=== PATIENT | male | born 1990 | race African-American/Black ===

== ENCOUNTER 2024-10-16 20:37 | Emergency (ER) | payer MEDICAID ==
[~2024-10-16] VITALS: Ht 193 cm; Wt 83.6 kg
[~2024-10-16 20:37] MED LIST: HYDR-4383 PO
[2024-10-16 20:48] VITALS: TEMP 98.2
[2024-10-16 21:16] LABS: BASOPHILS % (AUTO) 0.6 % (0-1); EOSINOPHILS # (AUTO) 0.3 X10'3 (0-0.9); EOSINOPHILS % (AUTO) 5.3 % (0-6); HEMATOCRIT 42.4 % (42.0-52.0); HEMOGLOBIN 13.6 g/dl (14.0-17.9); LYMPHOCYTES # (AUTO) 1.5 X10'3 (1.1-4.8); LYMPHOCYTES % (AUTO) 26.4 % (21-51); MEAN CORPUSCULAR HEMOGLOBIN 24.5 PG (27.0-31.0); MEAN CORPUSCULAR VOLUME 76.6 FL (78-98); MEAN PLATELET VOLUME 6.6 FL (7.4-10.4); MONOCYTES # (AUTO) 0.5 X10'3 (0-0.9); MONOCYTES % (AUTO) 7.8 % (2-12); NEUTROPHILS # (AUTO) 3.5 X10'3 (1.8-7.7); NEUTROPHILS % (AUTO) 59.9 % (42-75); PLATELET COUNT 329 X10'3 (140-440); RED BLOOD COUNT 5.54 X10'6 (4.70-6.10); RED CELL DISTRIBUTION WIDTH 16.5 % (11.5-14.5); WHITE BLOOD COUNT 5.8 X10'3 (4.5-11.0)
[2024-10-16 21:16] LABS: BILIRUBIN,URINE NEGATIVE (Neg); CLARITY,URINE CLEAR (Clear); COLOR,URINE YELLOW (Yellow); GLUCOSE, URINE NEGATIVE (Neg); KETONES,URINE NEGATIVE (Neg); LEUKOCYTE ESTERASE ,URINE NEGATIVE (Neg); NITRITES, URINE NEGATIVE (Neg); OCCULT BLOOD,URINE TRACE-INTACT (Neg); PROTEIN,URINE NEGATIVE (Neg); UROBILINOGEN,URINE 0.2 E.U/dL (0.2-1.0)
[2024-10-16 21:32] LABS: UA COLLECTION TYPE CLN CATCH MIDSTREAM
[2024-10-16 21:33] LABS: ALANINE AMINOTRANSFERASE 25 U/L (12-78); ALBUMIN/GLOBULIN RATIO 1.1 (1.1-1.5); ALKALINE PHOSPHATASE 62 IU/L (46-116); ANION GAP 9 (8-16); ASPARTATE AMINO TRANSFERASE 19 U/L (10-37); BILIRUBIN,TOTAL 0.4 MG/DL (0.1-1.0); BLOOD UREA NITROGEN 11 MG/DL (7-18); BUN/CREATININE RATIO 10.4 (10.0-20.0); CALCIUM 9.3 MG/DL (8.5-10.1); CHLORIDE 101 MMOL/L (99-107); CREATININE 1.06 MG/DL (0.60-1.10); GLUCOSE 125 MG/DL (70-104); LIPASE 32 U/L (16-77); POTASSIUM 3.8 MMOL/L (3.5-5.1); SODIUM 139 MMOL/L (135-145); TOTAL PROTEIN 7.8 G/DL (6.4-8.2); eCRCL 115 ML/MIN; eGFR > 90 ML/MIN
[2024-10-16 21:34] LABS: BACTERIA,URINE NONE SEEN /HPF (Neg); RBC,URINE 0-2 /HPF (0-2); SQUAMOUS EPITHELIAL CELL,UR NONE SEEN /LPF (FEW); WBC,URINE NONE SEEN /HPF (0-4)
[2024-10-17] MEDS ORDERED: LACT10SO7 PO (01:53)
[2024-10-17 02:22] VITALS: BP 132/82; PULSE 56; RESP 16; O2SAT 100
[2024-10-17 08:48] LABS: URINE AMPHETAMINE SCREEN NEGATIVE (Neg); URINE BARBITUATE SCREEN NEGATIVE (Neg); URINE BENZODIAZEPINES SCREEN NEGATIVE (Neg); URINE CANNABINOID SCREEN POSITIVE (Neg); URINE COCAINE SCREEN NEGATIVE (Neg); URINE METHADONE SCREEN NEGATIVE (Neg); URINE OPIATE SCREEN NEGATIVE (Neg); URINE PHENCYCLIDINE SCREEN NEGATIVE (Neg)
== END 2024-10-17 02:29 | disposition home or self-care (01) ==
LOC: ER 20:38
DX: K59.00 Constipation, unspecified (principal); Z79.899 Other long term (current) drug therapy
CPT/HCPCS: 36415; 74176; 80053; 80305; 81001; 83690; 85025; 99284

== ENCOUNTER 2025-06-07 09:48 | Emergency (ER) | payer MEDICAID ==
[~2025-06-07] VITALS: Ht 193 cm; Wt 104.6 kg
[~2025-06-07 09:48] MED LIST changes: -HYDR-4383 PO; +LACT10SO7 PO
[2025-06-07 09:51] VITALS: TEMP 98.4
--- NOTE | 2025-06-07 10:20 | Physician Documentation ---
History of Present Illness ~ Chief Complaint: Arm Pain Stated Complaint: ARM PAIN Time Seen by MD: 10:00 Primary Medical Doctor: none HPI Patient is seen today basically wanting to document some sores on his wrists the he claims are from handcuffs when he was arrested and in custodial recently. Patient states these sores and injury occurred about a week ago. Patient states he has persistent pain in his arms and wrists and hands and numbness in his right hand from the handcuffs. Patient has no other concern or complaint at this time. Tetanus within 5 years: No Medication Reconciliation Allergies: Coded Allergies: No Known Allergies (Unverified , 06/07/25) Scheduled PRN Lactulose (Lactulose), 30 ML PO DAILY PRN for constipation Past Medical History Past Medical History: No Pertinent History Past Surgical History: no surgical history Lives In: Home Review of Systems Constitutional: Denies: chills, fever, weakness Eyes: Denies: pain, blurred vision ENT: Denies: ear pain, nose pain, throat pain, mouth pain Respiratory: Denies: cough, shortness of breath Cardiovascular: Denies: chest pain, palpitations Gastrointestinal: Denies: abdominal pain, nausea, vomiting Genitourinary: Denies: burning, dysuria Male Genitalia: Denies: penile discharge, testicular pain Neurological: Denies: headache, dizziness Musculoskeletal: Denies: pain, swelling Integumentary: Denies: rash, lesions Allergic/Immunologic: Denies: hives, itching Hematologic/Lymphatic: Denies: no symptoms reported Psychiatric: Denies: depression, anxiety Physical Exam Vital Signs: Temperature: 98.4, Source: Oral, Heart Rate: 65, Respiratory Rate: 16, BP: 123/76, Pulse Oximetry: 99, Weight: 104.600 Oxygen Flow Rate: 0 Physical Exam General: Awake and Alert, no acute distress. HEENT: Conjunctiva pink, Sclera clear, Mucus Membranes moist. Neck: Supple without masses and tenderness. Resp: Unlabored. Lungs clear to auscultation bilaterally. Heart: Regular Rate and rhythm, normal S1 and S2 without murmur, rub or gallop. Abdomen: Soft and non tender no organomegaly Musculoskeletal: Patient on exam does have what appears to be almost completely healed small abrasions or wounds of his wrists one on the dorsum of his right wrist and another on the ulnar aspect of his left wrist. I do not appreciate any current swelling or induration or tenderness to palpation or sign of infection. The superficial skin wounds of the right and left wrists appear to be almost completely healed. I do not appreciate any swelling of the wrists and patient is currently neurovascularly intact distally of the bilateral upper extremities and hands. Motor function and strength intact distally. Skin: Warm and Dry. Progress Results/Orders Results/Orders Vital Signs 06/07/25 09:51 Temp 98.4 Pulse 65 Resp 16 B/P (MAP) 123/76 Pulse Ox 99 O2 Flow Rate 0 Medical Decision Making Findings Patient is seen today basically wanting to document some sores on his wrists the he claims are from handcuffs when he was arrested and in custodial recently. Patient states these sores and injury occurred about a week ago. Patient states he has persistent pain in his arms and wrists and hands and numbness in his right hand from the handcuffs. Patient has no other concern or complaint at this time. Patient will continue with conservative treatment and advance activity level as tolerated. He may continue with Tylenol and ibuprofen as needed for symptomatic pain relief. Patient will follow up with primary care in 5-7 days if no better as needed sooner for further eval and treatment. Return to ED with any worsening, concerning or changing symptoms. Departure Disposition: 01 HOME / SELF CARE / HOMELESS Impression: Primary Impression: Superficial bruising Additional Impression: Abrasion Condition: Stable Discharge Instructions: Abrasion, [id number] Additional Instructions: Patient will continue with conservative treatment and advance activity level as tolerated. He may continue with Tylenol and ibuprofen as needed for symptomatic pain relief. Patient will follow up with primary care in 5-7 days if no better as needed sooner for further eval and treatment. Return to ED with any worsening, concerning or changing symptoms. Referrals: NO PRIMARY CARE PROVIDER (PCP) Signature Scribe Signature: No scribe Attestation: No scribe TALISHA GRAHAM PAC Jun 07, 2025 10:20
[2025-06-07 10:48] VITALS: BP 122/81; PULSE 55; RESP 20; O2SAT 99
== END 2025-06-07 10:52 | disposition home or self-care (01) ==
LOC: ER 09:48
DX: S60.212A Contusion of left wrist, initial encounter (principal); S60.211A Contusion of right wrist, initial encounter; X58.XXXA Exposure to other specified factors, initial encounter; Y93.89 Activity, other specified; Y92.89 Other specified places as the place of occurrence of the external cause; Y99.8 Other external cause status
CPT/HCPCS: 99282